=== PATIENT | female | born 1970 | race Caucasian/White ===

== ENCOUNTER 2018-05-20 17:57 | Emergency (ER) | payer BC ==
[~2018-05-20] VITALS: Ht 172.7 cm; Wt 81.2 kg
[2018-05-20 18:03] VITALS: Ht 172.7 cm; Wt 81.2 kg
[2018-05-20 20:00] LABS: BASOPHIL % 0.4 % (0-2); PLATELET COUNT 289 x10^3mcL (130-400); RED CELL DISTRIBUTION WIDTH 14.4 % (11.5-14.5)
[2018-05-20 20:07] LABS: CARBON DIOXIDE 30.6 mmol/L (21-32); CHLORIDE SERUM 106 mmol/L (98-107); GFR1 > 60 mL/min; GLUCOSE SERUM 99 mg/dL (74-106); POTASSIUM SERUM 3.9 mmol/L (3.5-5.1); SODIUM SERUM 142 mmol/L (136-145)
[2018-05-20 20:12] LABS: ALBUMIN 3.6 g/dL (3.4-5.0); ALKALINE PHOSPHATASE 55 U/L (46-116); ALT/SGPT 33 U/L (14-59); AST/SGOT 21 U/L (15-37); TOTAL PROTEIN, SERUM 6.6 g/dL (6.4-8.2)
[2018-05-20 20:24] LABS: BILIRUBIN TOTAL 0.16 mg/dL (0.20-1.00)
[2018-05-20 22:01] VITALS: BP 126/79
== END 2018-05-20 22:01 | disposition home or self-care (01) ==
LOC: ED 17:57
PROVIDERS: Emergency Medicine
DX: N93.8 Other specified abnormal uterine and vaginal bleeding (principal); D25.9 Leiomyoma of uterus, unspecified; N83.209 Unspecified ovarian cyst, unspecified side
CPT/HCPCS: 36415

== ENCOUNTER 2019-02-06 17:30 | Emergency (ER) | payer BC ==
[~2019-02-06] VITALS: Ht 172.7 cm; Wt 78.9 kg
[2019-02-06 17:36] VITALS: Ht 172.7 cm; Wt 78.9 kg
[2019-02-06 19:00] VITALS: BP 122/73
== END 2019-02-06 19:00 | disposition home or self-care (01) ==
LOC: ED 17:30
DX: S61.213A Laceration without foreign body of left middle finger without damage to nail, initial encounter (principal); W22.8XXA Striking against or struck by other objects, initial encounter; Y93.89 Activity, other specified; Y92.89 Other specified places as the place of occurrence of the external cause; Y99.8 Other external cause status
CPT/HCPCS: 90715; J2001